=== PATIENT | male | born 1980 | race Caucasian/White ===

== ENCOUNTER 2017-03-16 20:59 | Emergency (ER) | payer BC ==
[2017-03-16 23:29] LABS: BASOPHIL % 0.2 % (0-2); PLATELET COUNT 213 x10^3mcL (130-400); RED CELL DISTRIBUTION WIDTH 13.8 % (11.5-14.5)
[2017-03-16 23:35] LABS: CARBON DIOXIDE 30.9 mmol/L (21-32); CHLORIDE SERUM 103 mmol/L (98-107); GFR1 > 60 mL/min; GLUCOSE SERUM 133 mg/dL (74-106); POTASSIUM SERUM 3.9 mmol/L (3.5-5.1); SODIUM SERUM 140 mmol/L (136-145)
[2017-03-16 23:54] LABS: FREE T4 0.89 ng/dL (0.76-1.46); FREE THYROXINE INDEX 2.6 ug/dL (1.4-4.5)
[2017-03-16 23:55] LABS: T3 TOTAL 1.18 ng/mL
[2017-03-17 00:01] LABS: CK-MB 1.1 ng/mL (0-3.6)
[2017-03-17 00:04] LABS: ALBUMIN 3.9 g/dL (3.4-5.0); ALKALINE PHOSPHATASE 104 U/L (46-116); ALT/SGPT 130 U/L (16-63); AST/SGOT 52 U/L (15-37); BILIRUBIN TOTAL 0.5 mg/dL (0.20-1.00); C REACTIVE PROTEIN 2.4 mg/dL (<=0.9); TOTAL PROTEIN, SERUM 7.9 g/dL (6.4-8.2)
[2017-03-17 00:23] LABS: UA SPECIFIC GRAVITY >=1.030 (1.005-1.035); microscopic required? YES; urine erythrocyte TRACE (NEGATIVE)
[2017-03-17 00:41] LABS: ERYTHROCYTE SED RATE 9 mm/hr (0-15)
[2017-03-17 00:53] VITALS: BP 115/68
== END 2017-03-17 00:45 | disposition home or self-care (01) ==
LOC: ED 20:59
PROVIDERS: Specialist
DX: R10.9 Unspecified abdominal pain (principal); R19.7 Diarrhea, unspecified
CPT/HCPCS: 83880; 84439; J1885; J2405; J3010; J7030

== ENCOUNTER 2017-05-28 04:28 | Inpatient (IN) | payer BC ==
[~2017-05-28] VITALS: Ht 180.3 cm; Wt 104.5 kg
[2017-05-28 05:51] LABS: PLATELET COUNT 243 x10^3mcL (130-400); RED CELL DISTRIBUTION WIDTH 14.1 % (11.5-14.5)
[2017-05-28 05:53] LABS: BILIRUBIN TOTAL 2.5 mg/dL (0.20-1.00); CALCIUM 8.7 mg/dL (8.5-10.1); CARBON DIOXIDE 25.8 mmol/L (21-32); CREATININE SERUM 1.5 mg/dL (0.7-1.3); POTASSIUM SERUM 4.6 mmol/L (3.5-5.1); TOTAL PROTEIN, SERUM 7.3 g/dL (6.4-8.2)
[2017-05-28 05:59] LABS: ALBUMIN 2.1 g/dL (3.4-5.0)
[2017-05-28] MEDS ORDERED: ASPIR 8181 MG (06:27)
[2017-05-28] MEDS ORDERED: ULTRAM50 MG (06:27)
[2017-05-28 07:17] LABS: BAND NEUTROPHIL 36 % (0-10); MONOCYTE 22 % (0-7); PLATELET MORPHOLOGY N; SEGMENTED NEUTROPHILS 30 % (37-75); rbc morphology (normal/abnorm) NORMAL (NORMAL)
[2017-05-28 10:16] VITALS: BP 131/76
[2017-05-28 11:13] LABS: T3 TOTAL 0.35 ng/mL
[2017-05-28 11:18] LABS: AMYLASE 52 U/L (25-115); CHOLESTEROL 160 mg/dL (<200)
[2017-05-28 11:20] LABS: CHOLESTEROL/HDL RATIO 17.8; HDL CHOLESTEROL 9 mg/dL (40-60); TRIGLYCERIDES 523 mg/dL (<150)
[2017-05-28 11:26] LABS: FREE T4 0.83 ng/dL (0.76-1.46)
[2017-05-28 11:28] LABS: FREE THYROXINE INDEX 1.5 ug/dL (1.4-4.5); T4(THYROXINE) 4.6 ug/dL (4.7-13.3)
[2017-05-28 12:00] VITALS: BP 114/69
[2017-05-28 13:23] LABS: AMPHETAMINE QUAL UR NONE DETECTED (NEG <=1000)
[2017-05-28 13:40] LABS: microscopic required? YES; urine erythrocyte 2+ (NEGATIVE)
[2017-05-28 14:40] VITALS: BP 114/69
[2017-05-28 15:04] LABS: CALCIUM 7.7 mg/dL (8.5-10.1); CARBON DIOXIDE 27.6 mmol/L (21-32); CREATININE SERUM 1.5 mg/dL (0.7-1.3); MAGNESIUM 2.8 mg/dL (1.8-2.4); PHOSPHOROUS 3.1 mg/dL (2.5-4.9); POTASSIUM SERUM 4.8 mmol/L (3.5-5.1)
[2017-05-28 15:11] LABS: BASOPHIL % 0.2 % (0-2); PLATELET COUNT 207 x10^3mcL (130-400)
[2017-05-28 15:12] LABS: RED CELL DISTRIBUTION WIDTH 14.7 % (11.5-14.5)
[2017-05-28 15:50] VITALS: BP 102/54
[2017-05-28 19:40] VITALS: BP 126/73
[2017-05-28 21:55] LABS: PLATELET COUNT 199 x10^3mcL (130-400)
[2017-05-28 22:00] LABS: CALCIUM 7.8 mg/dL (8.5-10.1); CARBON DIOXIDE 26.5 mmol/L (21-32); CHLORIDE SERUM 94 mmol/L (98-107); CREATININE SERUM 1.3 mg/dL (0.7-1.3); GFR1 > 60 mL/min; GLUCOSE SERUM 111 mg/dL (74-106); SODIUM SERUM 127 mmol/L (136-145)
[2017-05-28 22:13] LABS: BASOPHIL % 0 % (0-2); RED CELL DISTRIBUTION WIDTH 15.1 % (11.5-14.5)
[2017-05-28 23:15] VITALS: BP 115/55
[2017-05-29 03:02] VITALS: BP 121/65
[2017-05-29 03:12] LABS: PLATELET COUNT 196 x10^3mcL (130-400)
[2017-05-29 03:22] LABS: CALCIUM 7.8 mg/dL (8.5-10.1); CARBON DIOXIDE 24.5 mmol/L (21-32); CHLORIDE SERUM 95 mmol/L (98-107); CREATININE SERUM 1.3 mg/dL (0.7-1.3); GFR1 > 60 mL/min; GLUCOSE SERUM 110 mg/dL (74-106); POTASSIUM SERUM 4.7 mmol/L (3.5-5.1); SODIUM SERUM 128 mmol/L (136-145)
[2017-05-29 03:40] LABS: RED CELL DISTRIBUTION WIDTH 14.6 % (11.5-14.5)
[2017-05-29 03:50] LABS: BAND NEUTROPHIL 20 % (0-10); BASOPHIL 0 % (0-2); METAMYELOCTE 4 % (0-2); MONOCYTE 7 % (0-7); SEGMENTED NEUTROPHILS 61 % (37-75); rbc morphology (normal/abnorm) ABNORMAL (NORMAL)
[2017-05-29 03:52] LABS: PLATELET MORPHOLOGY PLATELETS NORMAL
[2017-05-29 07:29] VITALS: BP 117/69
[2017-05-29 08:22] VITALS: Ht 180.3 cm; Wt 104.5 kg
[2017-05-29 09:07] LABS: PLATELET COUNT 207 x10^3mcL (130-400)
[2017-05-29 09:08] LABS: BASOPHIL % 0 % (0-2); RED CELL DISTRIBUTION WIDTH 15.3 % (11.5-14.5)
[2017-05-29 09:43] LABS: CHLORIDE SERUM 96 mmol/L (98-107); CREATININE SERUM 1.2 mg/dL (0.7-1.3); GFR1 > 60 mL/min; GLUCOSE SERUM 113 mg/dL (74-106); POTASSIUM SERUM 4.2 mmol/L (3.5-5.1); SODIUM SERUM 129 mmol/L (136-145)
[2017-05-29 11:17] VITALS: BP 109/70
[2017-05-29 14:00] VITALS: BP 109/63
[2017-05-29 20:31] VITALS: BP 120/77
[2017-05-30 04:41] LABS: CARBON DIOXIDE 24.8 mmol/L (21-32); CHLORIDE SERUM 98 mmol/L (98-107); GFR1 > 60 mL/min; GLUCOSE SERUM 99 mg/dL (74-106); MAGNESIUM 2.8 mg/dL (1.8-2.4); PHOSPHOROUS 2.7 mg/dL (2.5-4.9); POTASSIUM SERUM 3.9 mmol/L (3.5-5.1); SODIUM SERUM 131 mmol/L (136-145)
[2017-05-30 04:50] LABS: PLATELET COUNT 242 x10^3mcL (130-400)
[2017-05-30 05:01] LABS: RED CELL DISTRIBUTION WIDTH 15.3 % (11.5-14.5)
[2017-05-30 05:36] VITALS: BP 115/64
[2017-05-30 08:23] VITALS: BP 122/74
[2017-05-30 10:22] LABS: BAND NEUTROPHIL 21 % (0-10); BASOPHIL 0 % (0-2); METAMYELOCTE 4 % (0-2); MONOCYTE 6 % (0-7); SEGMENTED NEUTROPHILS 62 % (37-75); rbc morphology (normal/abnorm) ABNORMAL (NORMAL)
[2017-05-30 13:42] LABS: BILIRUBIN DIRECT 2.34 mg/dL (0.0-0.2); BILIRUBIN TOTAL 3.3 mg/dL (0.20-1.00); TOTAL PROTEIN, SERUM 6.3 g/dL (6.4-8.2)
[2017-05-30 13:48] LABS: ALBUMIN 1.6 g/dL (3.4-5.0)
[2017-05-30 13:49] VITALS: BP 110/65
[2017-05-30 17:25] VITALS: BP 110/67
[2017-05-30 20:55] VITALS: BP 117/63
[2017-05-30] MEDS ORDERED: ATORVASTATIN CA40 M1 NG (20:55)
[2017-05-30] MEDS ORDERED: HEP5I SC (20:55)
[2017-05-30] MEDS ORDERED: SIMETHICONE80 MG CH (20:56)
[2017-05-30] MEDS ORDERED: DUL10S RC (20:56)
[2017-05-30] MEDS ORDERED: AMERINET CHOICE1 PD3 IV (20:58)
[2017-05-30] MEDS ORDERED: VANCO 1 GR1 GM/250 M IV (21:00)
[2017-05-30 21:34] VITALS: BP 117/63
== END 2017-05-30 22:00 | disposition short-term general hospital (02) | DRG 862 ==
LOC: ED 04:28 → IC 08:24 → DU 08:24 → IC 09:55 → DU 05-29 14:32
PROVIDERS: Emergency Medicine; ADMIT Family Medicine
DX: T81.4XXA Infection following a procedure, initial encounter (principal); A41.9 Sepsis, unspecified organism; J96.01 Acute respiratory failure with hypoxia; N17.0 Acute kidney failure with tubular necrosis; E43 Unspecified severe protein-calorie malnutrition; R65.20 Severe sepsis without septic shock; K56.7 Ileus, unspecified; E87.1 Hypo-osmolality and hyponatremia; L03.311 Cellulitis of abdominal wall; K59.00 Constipation, unspecified; E87.8 Other disorders of electrolyte and fluid balance, not elsewhere classified; E83.41 Hypermagnesemia; R31.9 Hematuria, unspecified; E78.1 Pure hyperglyceridemia; Z68.32 Body mass index [BMI] 32.0-32.9, adult; E11.9 Type 2 diabetes mellitus without complications; E66.01 Morbid (severe) obesity due to excess calories
CPT/HCPCS: 83880; 84439; C9113; J1644; J1885; J2270; J2405; J2543; J3230; J3370; J3490; J7030; J7050; J7620; Q0092; Q9967